=== PATIENT | female | born 1980 | race Caucasian/White ===

== ENCOUNTER 2017-03-16 14:52 | Emergency (ER) | payer OTHER ==
[2017-03-16 14:54] VITALS: BP 132/94; PULSE 140; RESP 18; TEMP 100.6; O2SAT 95
[2017-03-16] MEDS ORDERED: SODIUM CHLOR 0.9% 1000 ML INJ 800 ML IV ONE (15:16)
[2017-03-16] MEDS ORDERED: SODIUM CHLOR 0.9% 1000 ML INJ 1,000 ML IV ONE (15:16)
[2017-03-16] MEDS ORDERED: VANCOMYCIN INJ 750 MG in SODIUM CHLOR 0.9% 250 ML INJ 250 ML IV ONE (15:30)
[2017-03-16] MEDS ORDERED: PIPERACIL-TAZO 3.375 GM PREMIX 50 ML IV ONE (15:30)
[2017-03-16] MEDS ORDERED: ADDE10 PO (15:31)
[2017-03-16] MEDS ORDERED: KLON2TAB PO (15:31)
[2017-03-16 15:32] VITALS: BP 154/91; PULSE 137; RESP 18; TEMP 99.6; O2SAT 97
[2017-03-16 15:39] VITALS: RESP 18; O2SAT 95
--- NOTE | 2017-03-16 15:42 | RADRPT ---
EXAM DATE/TIME: 03/16/2017 15:22 [facility] COMPARISON: No previous studies available for comparison. INDICATIONS : Fever, vomitting, dizziness, and swelling in extremeties. MEDICAL HISTORY : None. SURGICAL HISTORY : None. ENCOUNTER: Initial ACUITY: 1 week PAIN SCORE: 0/10 LOCATION: Bilateral chest FINDINGS: A single view of the chest demonstrates the lungs to be symmetrically aerated without evidence of mas s, infiltrate or effusion. The cardiomediastinal contours are unremarkable. Osseous structures are intact. CONCLUSION: Normal examination for a patient of this age. Tomas Martinez MD on March 16, 2017 at 15:40 Board Certified Radiologist. This report was verified electronically.
[2017-03-16 15:56] LABS: AUTOMATED NEUTROPHIL # 2.7 TH/MM3 (1.8-7.7); BASOPHIL % 0.7 % (0.0-2.0); EOSINOPHIL # 0.2 TH/MM3 (0-0.4); HEMATOCRIT 39.1 % (35.0-46.0); HEMO FLAGS DIFF FINAL; LYMPH % 32.8 % (9.0-44.0); LYMPHOCYTE # 1.7 TH/MM3 (1.0-4.8); MEAN CELL VOLUME 83.7 FL (80.0-100.0); MEAN CORPUSCULAR HEMOGLOBIN 28.2 PG (27.0-34.0); MEAN CORPUSCULAR HGB CONC 33.7 % (32.0-36.0); MONO % 11.7 % (0.0-8.0); NEUT % 51.8 % (16.0-70.0); PLATELET COUNT 150 TH/MM3 (150-450); RED BLOOD COUNT 4.67 MIL/MM3 (4.00-5.30); RED CELL DISTRIBUTION WIDTH 13.6 % (11.6-17.2); WHITE BLOOD COUNT 5.2 TH/MM3 (4.0-11.0)
[2017-03-16 16:00] VITALS: BP 124/70; PULSE 97; RESP 18; O2SAT 95
[2017-03-16] MEDS ORDERED: IBUPROFEN 600 MG TAB PO ONE (16:00)
--- NOTE | 2017-03-16 16:06 | PD ---
HPI Chief Complaint: General Weakness Time Seen by Provider: 15:05 Travel History International Travel<30 days: No Contact w/Intl Traveler<30days: No Traveled to known affect area: No History of Present Illness HPI Patient is a 36-year-old female with history of hepatitis C which was diagnosed 18-20 months ago, presents to emergency room with complaints of abdominal pain with fevers and chills. Patient reports that for the past few months, she has noticed increased bruising to her body, reports that when she gets into small accidents, her body does not heal like it normally does. Reports that over the past week, RUQ pain has increased. Reports that she is overall not feeling well , reports that she feels lightheaded and dizzy. Denies chest pain, reports shortness of breath which she always has and is at baseline. 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 Reports that she last injected herself with dilaudid this morning. As per her hep c, reports that she was diagnosed 18-20 months ago at [facility] after she delivered her child. Reports that she has never followed up with a physician for this as she did not have any health care. [facility] Past Medical History Arthritis: Yes (RA) Anxiety: Yes Diminished Hearing: No Hepatitis: Yes (C) Medical other: Yes (lupus) Psychiatric: Yes (PTSD, ADD) ?: Not Past Surgical History Appendectomy: Yes Cholecystectomy: Yes Hysterectomy: Yes (partial) Social History Alcohol Use: No Tobacco Use: Yes Substance Use: Yes ("pain pills" or "whatever I can get") Allergies-Medications (Allergen,Severity, Reaction): Coded Allergies: Iodinated Contrast- Oral and IV Dye (Verified Allergy, Severe, Anaphylaxis , 03/16/17) butorphanol (Verified Allergy, Severe, Rash, 03/16/17) codeine (Verified Allergy, Severe, Migraine, 03/16/17) Reported Meds & Prescriptions Reported Meds & Active Scripts Active Reported Adderall (Amphetamine-Dextroamphetamine) 10 Mg Tab 10 Mg PO TID Avoid late evening doses. Space doses at least 4 to 6 hours if more than once/day dosing. Klonopin (Clonazepam) 2 Mg Tab 2 Mg PO TID Review of Systems General / Constitutional: Positive: Fever, Chills Eyes: No: Visual changes HENT: No: Headaches Cardiovascular: No: Chest Pain or Discomfort, Palpitations Respiratory: Positive: Shortness of Breath, No: Cough, Wheezing Gastrointestinal: Positive: Nausea, Abdominal Pain, No: Vomiting, Diarrhea, Constipation Genitourinary: No: Dysuria Musculoskeletal: No: Pain Skin: No Rash Neurologic: No: Weakness Psychiatric: No: Depression Endocrine: No: Polydipsia Hematologic/Lymphatic: No: Easy Bruising Physical Exam Narrative GENERAL: mild distress SKIN: Focused skin assessment warm/dry. HEAD: Atraumatic. Normocephalic. EYES: Pupils equal and round. No scleral icterus. No injection or drainage. ENT: No nasal bleeding or discharge. Mucous membranes pink and moist. NECK: Trachea midline. No JVD. CARDIOVASCULAR: Tachycardic. No murmur appreciated. RESPIRATORY: No accessory muscle use. Clear to auscultation. Breath sounds equal bilaterally. GASTROINTESTINAL: Abdomen soft, patient with increased tenderness to right upper quadrant, nondistended. Hepatic and splenic margins not palpable. MUSCULOSKELETAL: No obvious deformities. No clubbing. No cyanosis. No edema. NEUROLOGICAL: Awake and alert. No obvious cranial nerve deficits. Motor grossly within normal limits. Normal speech. PSYCHIATRIC: Appropriate mood and affect; insight and judgment normal. Data Data Last Documented VS Vital Signs Date Time Temp Pulse Resp B/P (MAP) Pulse Ox O2 Delivery O2 Flow Rate FiO2 03/16/17 16:00 97 18 124/70 (88) 95 Room Air 03/16/17 15:32 99.6 Orders Orders Complete Blood Count With Diff (03/16/17 15:16) Comprehensive Metabolic Panel (03/16/17 15:16) Prothrombin Time / Inr (Pt) (03/16/17 15:16) Act Partial Throm Time (Ptt) (03/16/17 15:16) Lactic Acid Sepsis Protocol (03/16/17 15:16) Magnesium (Mg) (03/16/17 15:16) Lipase (03/16/17 15:16) Ckmb (Isoenzyme) Profile (03/16/17 15:16) Troponin I (03/16/17 15:16) Urinalysis - C+S If Indicated (03/16/17 15:16) Influenzae A/B Antigen (03/16/17 15:16) Blood Culture (03/16/17 15:16) Chest, Single Ap (03/16/17 15:16) Ecg Monitoring (03/16/17 15:16) Iv Access Insert/Monitor (03/16/17 15:16) Oximetry (03/16/17 15:16) Sodium Chlor 0.9% 1000 Ml Inj (Ns 1000 M (03/16/17 15:16) Sodium Chlor 0.9% 1000 Ml Inj (Ns 1000 M (03/16/17 15:16) Ed Urine Pregnancytest Poc (03/16/17 15:16) Ct Abd/Pel W/O Iv Contrast (03/16/17 15:26) Piperacil-Tazo 3.375 Gm Premix (Zosyn 3. (03/16/17 15:30) Vancomycin Inj (Vancomycin Inj) (03/16/17 15:30) Ibuprofen (Motrin) (03/16/17 16:00) Urine Culture (03/16/17 15:25) Labs Laboratory Tests Test 03/16/17 15:25 03/16/17 15:34 Urine Color YELLOW Urine Turbidity HAZY Urine pH 5.0 Urine Specific [place] 1.025 Urine Protein TRACE mg/dL Urine Glucose (UA) NEG mg/dL Urine Ketones NEG mg/dL Urine Occult Blood NEG Urine Nitrite NEG Urine Bilirubin NEG Urine Urobilinogen 2.0 MG/DL Urine Leukocyte Esterase MOD Urine RBC 1 /hpf Urine WBC 11 /hpf Urine Squamous Epithelial Cells 8 /hpf Urine Bacteria MOD /hpf Urine Mucus FEW /lpf Microscopic Urinalysis Comment CULTURE INDICATED White Blood Count 5.2 TH/MM3 Red Blood Count 4.67 MIL/MM3 Hemoglobin 13.1 GM/DL Hematocrit 39.1 % Mean Corpuscular Volume 83.7 FL Mean Corpuscular Hemoglobin 28.2 PG Mean Corpuscular Hemoglobin Concent 33.7 % Red Cell Distribution Width 13.6 % Platelet Count 150 TH/MM3 Mean Platelet Volume 8.5 FL Neutrophils (%) (Auto) 51.8 % Lymphocytes (%) (Auto) 32.8 % Monocytes (%) (Auto) 11.7 % Eosinophils (%) (Auto) 3.0 % Basophils (%) (Auto) 0.7 % Neutrophils # (Auto) 2.7 TH/MM3 Lymphocytes # (Auto) 1.7 TH/MM3 Monocytes # (Auto) 0.6 TH/MM3 Eosinophils # (Auto) 0.2 TH/MM3 Basophils # (Auto) 0.0 TH/MM3 CBC Comment DIFF FINAL Differential Comment Prothrombin Time 10.5 SEC Prothromb Time International Ratio 1.0 RATIO Activated Partial Thromboplast Time 28.5 SEC Blood Urea Nitrogen 10 MG/DL Creatinine 0.80 MG/DL Random Glucose 111 MG/DL Total Protein 7.7 GM/DL Albumin 3.5 GM/DL Calcium Level 8.5 MG/DL Magnesium Level 1.9 MG/DL Alkaline Phosphatase 86 U/L Aspartate Amino Transf (AST/SGOT) 57 U/L Alanine Aminotransferase (ALT/SGPT) 47 U/L Total Bilirubin 0.3 MG/DL Sodium Level 138 MEQ/L Potassium Level 3.8 MEQ/L Chloride Level 103 MEQ/L Carbon Dioxide Level 29.2 MEQ/L Anion Gap 6 MEQ/L Estimat Glomerular Filtration Rate 81 ML/MIN Lactic Acid Level 0.8 mmol/L Total Creatine Kinase 53 U/L Troponin I LESS THAN 0.02 NG/ML Lipase 87 U/L [facility] Medical Decision Making Medical Screen Exam Complete: Yes Emergency Medical Condition: Yes Medical Record Reviewed: Yes Interpretation(s) Vital Signs Date Time Temp Pulse Resp B/P (MAP) Pulse Ox O2 Delivery O2 Flow Rate FiO2 03/16/17 15:39 18 95 Room Air 03/16/17 15:32 99.6 137 18 154/91 (112) 97 Room Air 03/16/17 14:54 100.6 140 18 132/94 (107) 95 Differential Diagnosis pneumonia, viral syndrome, liver cirrhosis/liver failure, electrolyte abnormality, bacteremia, endocarditis Narrative Course Patient is a 36-year-old female presents to emergency room with complaints of not feeling well for the past week. Reports history of hep c which was diagnosed 18-20 months ago and has been untreated. Patient reports that over the past week, she has been noticing increased bruising, reports that she is sleepy, reports that she is just not feeling well and reports overall generalized weakness. Patient reports that she has pain all of her body, reports pain is worse to the right upper quadrant of her abdomen. Patient reports that she has relapsed and began using IV drugs with last use this morning. Patient was placed on a senior medical technologist upon arrival to the emergency room. She was febrile to temperature 100.6, tachycardic with heart rate in 140s, lab work including blood cultures and lactic acid ordered. After an IV line was established, patient was given a 30 cc/kg bolus of IV fluids, broad-spectrum antibiotics were ordered. CBC, CMP, UA, CT of the abdomen and pelvis was ordered. Plan to monitor patient at this time. Vital Signs Date Time Temp Pulse Resp B/P (MAP) Pulse Ox O2 Delivery O2 Flow Rate FiO2 03/16/17 16:00 97 18 124/70 (88) 95 Room Air 03/16/17 15:39 18 95 Room Air 03/16/17 15:32 99.6 137 18 154/91 (112) 97 Room Air 03/16/17 14:54 100.6 140 18 132/94 (107) 95 WBC 5.2, hemoglobin 13.1, hematocrit 39.1, platelets 150 Sodium 138, potassium 3.8, BUN 10, creatinine 0.80, anion gap 6 Lactic acid 0.8 Magnesium 1.9 AST 59, ALT 47, alkaline phosphatase 86 CK 53, troponin 0.02 Lipase 87 PT 10.5, PTT 28.5, INR 1.0 UA positive for mod leuk esterase, mod bacteria, 11wbc Last Impressions Abdomen/Pelvis CT 03/16/17 1526 Signed Impressions: Service Date/Time: February 16:04 - CONCLUSION: 1. No acute abnormality. 2. Splenomegaly without lymphadenopathy. Ranjit Sam Jr., MD Chest X-Ray 03/16/17 1516 Signed Impressions: Service Date/Time: February 15:22 - CONCLUSION: Normal examination for a patient of this age. Tomas Martinez MD Patient initially presented to the emergency room tachycardic and febrile, patient now normotensive with a heart rate of 97. Patient has been pancultured , was initially given a dose of Zosyn as well as vancomycin she did have SIRS criteria. Patient with most likely source of infection as her urine. She will be discharged home with a script for macrobid. Patient does not appear to be in liver failure at this time, platelet count as well as coags are normal. Patient's abdomen is soft, nt/nd, no peritoneal signs. I did review pt's ct report with her in detail. A copy of her report was given to her. She will follow up with her pcp as well as geographic information systems director and will return to ER as needed. Patient will also follow up with all cultures from today. Patient safe to be discharged to home with outpatient follow up. Sepsis Criteria SIRS Criteria (2 or more): Temp > 100.9 or < 96.8, Heart rate over 90 Criteria Outcome: Meets SIRS criteria Diagnosis Primary Impression: SIRS (systemic inflammatory response syndrome) Additional Impressions: Abdominal pain Qualified Codes: R10.9 - Unspecified abdominal pain UTI (urinary tract infection) Qualified Codes: N30.00 - Acute cystitis without hematuria Splenomegaly Admitting Information Admitting Physician Requests: Admit Patient Instructions: General Instructions Additional Instructions: Please provide patient with a copy of her labs and studies at discharge Please follow up with all cultures from today Please take all medications as prescribed Return to ER if symptoms worsen or progress Return to ER as needed Please call your doctor for earliest follow up appointment Please call the [place] clinic for earliest follow up and bring a copy of your studies to your appointment. Med/Other Pt SpecificInfo: Prescription(s) given Scripts Fluconazole (Diflucan) 150 Mg Tab 150 MG PO ONCE for Infection, #1 TAB 0 Refills Prov: Hailey Cabrera DO 03/16/17 Nitrofurantoin Monohydrate Macrocrystals (Macrobid) 100 Mg Cap 100 MG PO BID for Infection for 10 Days, #20 CAP 0 Refills Prov: Hailey Cabrera DO 03/16/17 Disposition: 01 DISCHARGE HOME Condition: Stable Hailey Cabrera DO Mar 16, 2017 16:06
[2017-03-16 16:12] LABS: APTT (PATIENT) 28.5 SEC (24.3-30.1); PROTHROMBIN TIME - PATIENT 10.5 SEC (9.8-11.6)
[2017-03-16 16:35] LABS: ANION GAP 6 MEQ/L (5-15); AST (GOT) 57 U/L (15-37); BICARBONATE 29.2 MEQ/L (21.0-32.0); BLOOD UREA NITROGEN 10 MG/DL (7-18); CHLORIDE 103 MEQ/L (98-107); GLOMERULAR FILTRATION RATE 81 ML/MIN (>89); MAGNESIUM 1.9 MG/DL (1.5-2.5); POTASSIUM 3.8 MEQ/L (3.5-5.1); SODIUM (NA) 138 MEQ/L (136-145)
--- NOTE | 2017-03-16 16:38 | RADRPT ---
EXAM DATE/TIME: 03/16/2017 16:04 [facility] COMPARISON: No previous studies available for comparison. INDICATIONS : Mid-abdomen pain that radiates to the right side. ORAL CONTRAST: No oral contrast ingested. RADIATION DOSE: 6.64 CTDIvol (mGy) MEDICAL HISTORY : Rheumatoid arthritis. Lupus. Hepatitis C. SURGICAL HISTORY : Appendectomy. Cholecystectomy.Hysterectomy. ENCOUNTER: Initial ACUITY: 3 days PAIN SCALE: 4/10 LOCATION: Right flank TECHNIQUE: Volumetric scanning of the abdomen and pelvis was performed. Using automated exposure control and ad justment of the mA and/or kV according to patient size, radiation dose was kept as low as reasonably achievable to obtain optimal diagnostic quality images. DICOM format image data is available electro nically for review and comparison. FINDINGS: LOWER LUNGS: The visualized lower lungs are clear. LIVER: Homogeneous density without lesion. There is no dilation of the biliary tree. Gallbladder is surgica lly absent. SPLEEN: The spleen is enlarged. Measures 13.1 cm in greatest dimensions. No splenic lesion on this unenhanced evaluation. PANCREAS: Within normal limits. KIDNEYS: Normal in size and shape. There is no mass, stone, or hydronephrosis. ADRENAL GLANDS: Within normal limits. VASCULAR: There is no aortic aneurysm. BOWEL/MESENTERY: The stomach, small bowel, and colon demonstrate no acute abnormality. There is no free intraperitone al air or fluid. ABDOMINAL WALL: Within normal limits. RETROPERITONEUM: There is no lymphadenopathy. BLADDER: No wall thickening or mass. REPRODUCTIVE: Within normal limits. INGUINAL: There is no lymphadenopathy or hernia. MUSCULOSKELETAL: Within normal limits for patient age. CONCLUSION: 1. No acute abnormality. 2. Splenomegaly without lymphadenopathy. Ranjit Sam Jr., MD on March 16, 2017 at 16:32 Board Certified Radiologist. This report was verified electronically.
[2017-03-16 16:41] LABS: ALKALINE PHOSPHATASE 86 U/L (45-117); ALT (GPT) 47 U/L (10-53); TOTAL BILIRUBIN ADULT 0.3 MG/DL (0.2-1.0)
[2017-03-16 16:42] LABS: CREATINE KINASE 53 U/L (26-192)
[2017-03-16 17:11] LABS: BACTERIA, URINE MOD /hpf; BLOOD, URINE NEG (NEG); COMMENT (UR) CULTURE INDICATED; CULTURE IF INDICATED CULTURE INDICATED; GLUCOSE,URINE NEG (NEG); KETONE, URINE NEG (NEG); MUCUS URINE FEW /lpf (OCC); NITRITE,URINE NEG (NEG); SQUAMOUS EPITHELIAL CELL URINE 8 /hpf (0-5); URINE COLOR YELLOW (YELLW/STRAW)
[2017-03-16] MEDS ORDERED: DIFL150T PO (17:35)
[2017-03-16] MEDS ORDERED: MACR100C2 PO (17:35)
== END 2017-03-16 19:33 | disposition home or self-care (01) ==
LOC: NEPC 14:52
DX: R65.10 Systemic inflammatory response syndrome (SIRS) of non-infectious origin without acute organ dysfunction (principal); R10.9 Unspecified abdominal pain; N30.00 Acute cystitis without hematuria; B96.20 Unspecified Escherichia coli [E. coli] as the cause of diseases classified elsewhere; R50.9 Fever, unspecified; R00.0 Tachycardia, unspecified; R42 Dizziness and giddiness; R06.02 Shortness of breath; Z72.0 Tobacco use; Z87.39 Personal history of other diseases of the musculoskeletal system and connective tissue; Z86.59 Personal history of other mental and behavioral disorders; Z86.19 Personal history of other infectious and parasitic diseases; Z86.2 Personal history of diseases of the blood and blood-forming organs and certain disorders involving the immune mechanism
CPT/HCPCS: 71010; 74176; 80053; 81001; 82550; 83605; 83690; 83735; 84484; 84703; 85025; 85610; 85730; 87040; 87077; 87086; 87186; 87804; 96361; 96365; 96375; 99285; J2543; J3370; J7030; J7050